=== PATIENT | male | born 1965 | race Caucasian/White ===

== ENCOUNTER 2019-04-28 23:02 | Emergency (ER) | payer OTHER ==
[~2019-04-28] VITALS: Ht 167.6 cm; Wt 82.0 kg
[~2019-04-28 23:02] MED LIST: ATOR10TA; BP MEDICATION
[2019-04-28] MEDS ORDERED: NITROGLYCERIN 0.4MG TABLET SL SL PRN (23:45)
[2019-04-28] MEDS ORDERED: ASPIRIN 81MG TABLET PO ONE (23:45)
[2019-04-28 23:48] LABS: BASOPHILS % 0.9 % (0.0-2.0); EOSINOPHILS % 5.5 % (0.0-5.0); HEMATOCRIT. 43.1 % (42.0-52.0); HEMOGLOBIN. 15.2 g/dL (14.0-18.0); LYMPHOCYTES % 37.4 % (20.0-50.0); MEAN CORPUSCULAR HEMOGLOBIN 32.8 pg (28.0-32.0); MEAN CORPUSCULAR VOLUME 93.2 fL (80.0-94.0); MEAN PLATELET VOLUME 7.3 fl (7.4-10.4); MONOCYTES % 9.5 % (2.0-8.0); NEUTROPHILS % 46.7 % (40.0-76.0); PLATELET 236 x1000/uL (130-400); RED BLOOD CELL COUNT 4.62 mill/uL (4.7-6.1); RED CELL DISTRIBUTION WIDTH 12.8 % (11.6-14.6)
[2019-04-28 23:54] LABS: CHLORIDE 108 mEq/L (98-107)
[2019-04-29 05:04] VITALS: BP 135/61
== END 2019-04-29 05:06 | disposition home or self-care (01) ==
LOC: ER 23:02
DX: R07.89 Other chest pain (principal); E78.00 Pure hypercholesterolemia, unspecified; I10 Essential (primary) hypertension; R73.03 Prediabetes
CPT/HCPCS: 36415; 71045; 80053; 83880; 84484; 85025; 93005; 99284; Z7610

== ENCOUNTER 2020-10-08 14:21 | Emergency (ER) | payer OTHER ==
[~2020-10-08] VITALS: Ht 172.7 cm; Wt 100.0 kg
[2020-10-08] MEDS ORDERED: IBUPROFEN 600MG TABLET PO STA (14:35)
[2020-10-08] MEDS ORDERED: LORAZEPAM 1MG TABLET PO ONE (14:45)
[2020-10-08 15:39] VITALS: BP 134/83
== END 2020-10-08 15:42 | disposition home or self-care (01) ==
LOC: ER 14:32
DX: R07.89 Other chest pain (principal); F10.139 Alcohol abuse with withdrawal, unspecified; Y90.9 Presence of alcohol in blood, level not specified; I10 Essential (primary) hypertension
CPT/HCPCS: 71045; 93005; 99283

== ENCOUNTER 2024-12-15 20:03 | Inpatient (IN) | payer OTHER ==
[~2024-12-15] VITALS: Ht 165.1 cm; Wt 90.7 kg
[2024-12-15] MEDS ORDERED: DIAZEPAM 5 MG/ML 2ML SYR IV ONE (20:15)
[2024-12-15 21:22] LABS: BASOPHILS % 1.2 % (0.0-2.0); EOSINOPHILS % 3.9 % (0.0-5.0); HEMATOCRIT. 45.3 % (42.0-52.0); HEMOGLOBIN. 15.6 g/dL (14.0-18.0); LYMPHOCYTES % 29.3 % (20.0-50.0); MEAN CORPUSCULAR HEMOGLOBIN 31.9 pg (28.0-32.0); MEAN CORPUSCULAR HGB CONC 34.4 g/dL (31.0-37.0); MEAN CORPUSCULAR VOLUME 92.7 fL (80.0-94.0); MEAN PLATELET VOLUME 6.8 fl (7.4-10.4); MONOCYTES % 9.1 % (2.0-8.0); NEUTROPHILS % 56.5 % (40.0-76.0); PLATELET 243 x1000/uL (130-400); RED BLOOD CELL COUNT 4.89 mill/uL (4.7-6.1); RED CELL DISTRIBUTION WIDTH 13.2 % (11.6-14.6); WHITE BLOOD COUNT 4.9 x1000/uL (4.5-11.0)
[2024-12-15 21:27] LABS: CHLORIDE 103 mEq/L (98-107); POTASSIUM 4.3 mEq/L (3.5-5.1); SODIUM 139 mEq/L (136-145)
[2024-12-15 21:28] LABS: CALCIUM 8.8 mg/dL (8.7-10.4); CARBON DIOXIDE 26 mEq/L (21-32)
[2024-12-15 21:33] LABS: GLUCOSE 124 mg/dL (70-105)
[2024-12-15 21:34] LABS: ETHANOL BLOOD 10 mg/dL (<10); UREA NITROGEN BLOOD 11 mg/dL (9-23)
[2024-12-15 21:35] LABS: ALANINE AMINOTRANSFERASE 35 IU/L (10-49); ALBUMIN 4.2 g/dL (3.2-4.8); ASPARTATE AMINOTRANSFERASE 25 IU/L (<34); BILIRUBIN DIRECT 0.2 mg/dL (<=3.0); PROTEIN TOTAL 7.1 g/dL (6.0-8.3)
[2024-12-15 21:36] LABS: BILIRUBIN TOTAL 0.7 mg/dL (0.1-1.0)
[2024-12-15] MEDS: FOLIC ACID 1 MG, THIAMINE HCL 100 MG, MVI, ADULT NO.1 10 ML in DEXTROSE 5% WATER 1,000 ML IV ONE (22:18)
[2024-12-15] MEDS: DIAZEPAM 5 MG/ML 2ML SYR IV NR (22:20)
[2024-12-15] MEDS: ONDANSETRON HCL 4MG/2ML INJ IV ONE (22:21)
[2024-12-15] MEDS ORDERED: IPRATROPIUM/ALBUTEROL 0.5-3(2.5)MG/3ML NEB HHN PRN (23:45)
[2024-12-15] MEDS ORDERED: CLONIDINE 0.1MG TABLET PO PRN (23:45)
[2024-12-15] MEDS ORDERED: ACETAMINOPHEN 325MG TABLET PO PRN ×2 (23:45)
[2024-12-15] MEDS ORDERED: ONDANSETRON HCL 4MG/2ML INJ IV PRN (23:45)
[2024-12-15] MEDS ORDERED: DOCUSATE SODIUM 100MG CAPSULE PO PRN (23:45)
[2024-12-15] MEDS ORDERED: MAGNESIUM/ALUMINUM HYDROXIDE/SIMETHICONE 30ML UDC PO PRN (23:45)
[2024-12-15] MEDS ORDERED: GUAIFENESIN 200MG/10ML SUGAR FREE UDC PO PRN (23:45)
[2024-12-16 02:23] LABS: CLARITY URINE CLEAR (CLEAR); COLOR URINE YELLOW (YELLOW); GLUCOSE URINE 1+ (NEGATIVE); KETONES URINE NEGATIVE (NEGATIVE); LEUKOCYTE ESTERASE URINE NEGATIVE (NEGATIVE); NITRITE URINE NEGATIVE (NEGATIVE); OCCULT BLOOD URINE NEGATIVE (NEGATIVE); PROTEIN URINE NEGATIVE (NEGATIVE); SPECIFIC GRAVITY URINE 1.012 (1.005-1.030)
[2024-12-16 02:33] LABS: *AMPHETAMINES SCREEN URINE NEGATIVE (NEGATIVE); *BARBITURATES SCREEN URINE NEGATIVE (NEGATIVE); *BENZODIAZEPINES SCREEN URINE NEGATIVE (NEGATIVE); *COCAINE SCREEN URINE NEGATIVE (NEGATIVE)
[2024-12-16 02:34] LABS: CANNABINOID URINE SCREEN NEGATIVE (NEGATIVE); ECSTASY MDMA SCREEN URINE NEGATIVE (NEGATIVE); METHADONE URINE SCREEN NEGATIVE (NEGATIVE); OPIATES URINE SCREEN NEGATIVE (NEGATIVE); PHENCYCLIDINE URINE SCREEN NEGATIVE (NEGATIVE)
[2024-12-16 02:40] LABS: BACTERIA URINE NONE SEEN; RBC URINE 0-2 /hpf (0-2); SQUAMOUS EPITHELIAL CELL URINE NONE SEEN /lpf (RARE/1+); WBC URINE NONE SEEN /hpf (0-2)
[2024-12-16 05:28] LABS: BASOPHILS % 0.9 % (0.0-2.0); EOSINOPHILS % 1.4 % (0.0-5.0); HEMATOCRIT. 43.2 % (42.0-52.0); HEMOGLOBIN. 15.1 g/dL (14.0-18.0); MEAN CORPUSCULAR HEMOGLOBIN 31.5 pg (28.0-32.0); MEAN CORPUSCULAR HGB CONC 34.9 g/dL (31.0-37.0); MEAN CORPUSCULAR VOLUME 90.2 fL (80.0-94.0); MEAN PLATELET VOLUME 6.7 fl (7.4-10.4); MONOCYTES % 9.9 % (2.0-8.0); NEUTROPHILS % 68.8 % (40.0-76.0); PLATELET 245 x1000/uL (130-400); RED BLOOD CELL COUNT 4.78 mill/uL (4.7-6.1); RED CELL DISTRIBUTION WIDTH 13.4 % (11.6-14.6); WHITE BLOOD COUNT 7.4 x1000/uL (4.5-11.0)
[2024-12-16 06:04] LABS: CALCIUM 9.3 mg/dL (8.7-10.4); CARBON DIOXIDE 27 mEq/L (21-32); CHLORIDE 102 mEq/L (98-107); POTASSIUM 3.8 mEq/L (3.5-5.1); SODIUM 138 mEq/L (136-145)
[2024-12-16 06:05] LABS: CREATINE KINASE MB FRACTION 0.7 ng/mL (0.5-3.6)
[2024-12-16 06:09] LABS: THYROID STIMULATING HORMONE 2.44 uIU/mL (0.55-4.78)
[2024-12-16 06:10] LABS: CREATINE KINASE 103 IU/L (46-171); GLUCOSE 105 mg/dL (70-105); TRIGLYCERIDE 160 mg/dL (0-150); UREA NITROGEN BLOOD 11 mg/dL (9-23)
[2024-12-16 06:11] LABS: LDL CHOLESTEROL 113 mg/dL (5-100)
[2024-12-16 06:12] LABS: CHOLESTEROL 176 mg/dL (<200)
[2024-12-16 06:50] LABS: TROPONIN I HIGH SENSITIVITY 109 ng/L (3.0-53)
[2024-12-16 08:15] LABS: HDL CHOLESTEROL 40 mg/dL (>55)
[2024-12-16] MEDS ORDERED: MULTIVITAMINS,THER W-MINERALS TABLET PO SCH (09:00)
[2024-12-16] MEDS ORDERED: THIAMINE HCL 100MG TABLET PO SCH (09:00)
[2024-12-16] MEDS ORDERED: FOLIC ACID 1MG TABLET PO SCH (09:00)
[2024-12-16 09:07] LABS: TROPONIN I HIGH SENSITIVITY 102 ng/L (3.0-53)
[2024-12-16] MEDS ORDERED: GABA-1180 (09:30)
[2024-12-16] MEDS ORDERED: LISI20TA31 (09:30)
[2024-12-16] MEDS ORDERED: TAMS-11 PO (09:30)
[2024-12-16] MEDS ORDERED: PHENOBARBITAL 30 MG TABLET PO PRN (09:45)
[2024-12-16] MEDS ORDERED: LORAZEPAM 1MG TABLET PO PRN (09:45)
[2024-12-16] MEDS: ASPIRIN 81MG TABLET PO SCH (10:25)
[2024-12-16] MEDS: HYDROCODONE/ACETAMINOPHEN 5/325MG TABLET PO PRN (10:26)
[2024-12-16] MEDS: ENOXAPARIN 40MG/0.4ML SYR SUBCUT SCH (10:27)
[2024-12-16 10:30] VITALS: BP 158/65; PULSE 61; RESP 18; TEMP 37.1
[2024-12-16] MEDS: MVI, ADULT NO.1 10 ML, FOLIC ACID 1 MG, THIAMINE HCL 100 MG in SODIUM CHLORIDE 0.9% 1,0... IV SCH (11:35)
[2024-12-16 12:00] VITALS: BP 169/77; PULSE 61; RESP 20; TEMP 36.5; O2SAT 98
[2024-12-16] MEDS: CHLORDIAZEPOXIDE 25MG CAPSULE PO PRN (12:00)
[2024-12-16] MEDS ORDERED: NALT50TA5 MT (12:07)
[2024-12-16] MEDS ORDERED: TAMS-11 MT (12:07)
[2024-12-16] MEDS ORDERED: METF-414 MT (12:07)
[2024-12-16] MEDS ORDERED: LOVA40TA73 MT (12:07)
[2024-12-16] MEDS ORDERED: GABA-1180 PO (12:40)
[2024-12-16] MEDS ORDERED: LISI20TA31 PO (12:40)
[2024-12-16] MEDS ORDERED: METF-414 PO (12:41)
[2024-12-16] MEDS ORDERED: LOVA40TA73 PO (12:41)
[2024-12-16] MEDS ORDERED: NALOXONE HCL 0.4MG/ML VIAL IV PRN (12:45)
[2024-12-16] MEDS: GABAPENTIN 300MG CAPSULE PO SCH (13:00)
[2024-12-16] MEDS: LISINOPRIL 20MG TABLET PO SCH (14:55)
[2024-12-16] MEDS: TAMSULOSIN HCL 0.4MG SR CAPSULE PO SCH (14:56)
[2024-12-16 16:40] LABS: CREATINE KINASE MB FRACTION 0.6 ng/mL (0.5-3.6)
[2024-12-16] MEDS ORDERED: PNEUMOCOCCAL 20-VAL CONJ-DIP CRM 0.5ML IM ONE (18:15)
[2024-12-16 20:00] VITALS: BP 139/83; PULSE 73; RESP 19; TEMP 36.3; O2SAT 98
[2024-12-16] MEDS: ATORVASTATIN CALCIUM 10MG TABLET PO SCH (22:06)
[2024-12-16 23:59] VITALS: BP 140/68; PULSE 60; RESP 19; TEMP 36.6; O2SAT 97
[2024-12-17 04:00] VITALS: BP 153/77; PULSE 64; RESP 19; TEMP 36.2; O2SAT 100
[2024-12-17 05:21] LABS: HEMATOCRIT 43.1 % (42.0-52.0); HEMOGLOBIN 14.9 g/dL (14.0-18.0); MEAN CORPUSCULAR HGB CONC 34.4 g/dL (31.0-37.0); PLATELET 233 x1000/uL (130-400); RED BLOOD CELL COUNT 4.63 mill/uL (4.7-6.1); RED CELL DISTRIBUTION WIDTH 12.9 % (11.6-14.6); WHITE BLOOD COUNT 4.7 x1000/uL (4.5-11.0)
[2024-12-17 05:34] LABS: CARBON DIOXIDE 29 mEq/L (21-32); CHLORIDE 103 mEq/L (98-107); POTASSIUM 4.7 mEq/L (3.5-5.1); SODIUM 140 mEq/L (136-145)
[2024-12-17 05:35] LABS: CALCIUM 9.1 mg/dL (8.7-10.4)
[2024-12-17 05:39] LABS: CREATININE 1.1 mg/dL (0.6-1.3)
[2024-12-17 05:40] LABS: GLUCOSE 108 mg/dL (70-105); UREA NITROGEN BLOOD 12 mg/dL (9-23)
[2024-12-17 09:07] VITALS: BP 158/79; PULSE 66; RESP 20; TEMP 37.2; O2SAT 100
[2024-12-17] MEDS: MULTIVITAMINS,THER W-MINERALS TABLET PO SCH (09:22)
[2024-12-17] MEDS: FOLIC ACID 1MG TABLET PO SCH (09:22)
[2024-12-17] MEDS: ASPIRIN 81MG TABLET PO SCH (09:22)
[2024-12-17] MEDS: THIAMINE HCL 100MG TABLET PO SCH (09:22)
[2024-12-17 12:00] VITALS: BP 132/74; PULSE 62; RESP 20; TEMP 36; O2SAT 98
[2024-12-17 16:00] VITALS: BP 138/77; PULSE 66; RESP 20; TEMP 36.2; O2SAT 98
[2024-12-17 17:20] VITALS: BP 130/65; PULSE 59; RESP 20; TEMP 36.6; O2SAT 98
[2024-12-17 19:43] VITALS: BP 127/85; PULSE 58; RESP 19; TEMP 36.3; O2SAT 98
[2024-12-18] VITALS (7 sets, daily range): BP systolic 110–140; BP diastolic 59–77; PULSE 50–78; RESP 18–20; TEMP 36.1–37.2; O2SAT 97–100
[2024-12-19 00:10] VITALS: BP 118/60; PULSE 79; RESP 19; TEMP 36.6; O2SAT 97
[2024-12-19 04:00] VITALS: BP 128/69; PULSE 76; RESP 18; TEMP 36.4; O2SAT 97
[2024-12-19 08:00] VITALS: BP 113/52; PULSE 65; RESP 18; TEMP 36.4; O2SAT 97
[2024-12-19 12:00] VITALS: BP 122/73; PULSE 80; RESP 18; TEMP 36.3; O2SAT 99
[2024-12-19 14:33] VITALS: BP 119/68; PULSE 76; TEMP 97.7; O2SAT 99
[2024-12-19] MEDS ORDERED: ASPI-1160 PO (15:18)
[2024-12-19] MEDS ORDERED: THIA100T72 PO (15:18)
[2024-12-19] MEDS ORDERED: ATOR10TA PO (15:18)
[2024-12-19] MEDS ORDERED: MULT-230 MT (15:18)
[2024-12-19] MEDS ORDERED: FOLI-43 PO (15:18)
== END 2024-12-19 15:45 | disposition home or self-care (01) | DRG 640 ==
LOC: ER 20:16 → 7WST 22:04
PROVIDERS: ADMIT Internal Medicine; ATTEND Internal Medicine
DX: E86.0 Dehydration (principal); I21.A1 Myocardial infarction type 2; F10.239 Alcohol dependence with withdrawal, unspecified; F10.229 Alcohol dependence with intoxication, unspecified; E78.5 Hyperlipidemia, unspecified; Y90.9 Presence of alcohol in blood, level not specified; F41.1 Generalized anxiety disorder; I10 Essential (primary) hypertension; Z88.0 Allergy status to penicillin
CPT/HCPCS: 36415; 80048; 80061; 80076; 80305; 80320; 81003; 82550; 82553; 83735; 84443; 84484; 85025; 85027; 93005; 93306; 93970; 97162; 97165; 99291; A4606; J1650; J2405; J3411; J3490; J7030; J7070; G0480